=== PATIENT | female | born 1990 | race Two or more races ===

== ENCOUNTER 2020-07-28 23:04 | Inpatient (IN) | payer MEDICAID ==
[2020-07-28] MEDS ORDERED: Oxytocin/Lactated Ringers 10 UNIT/1,000 ML BAG IV SCH (23:45)
[2020-07-28] MEDS ORDERED: Ampicillin 2 GM in Sodium Chloride 0.9% 100 ML IV ONE (23:46)
[2020-07-28] MEDS ORDERED: Ondansetron 4 MG/2 ML SDV IVPUSH PRN (23:46)
[2020-07-28] MEDS ORDERED: Sodium Chloride 0.9% 10 ML Syringe FLUSH PRN (23:46)
[2020-07-28] MEDS ORDERED: Nalbuphine 10 MG/1 ML Vial IVPUSH PRN (23:46)
[2020-07-29] MEDS: Lactated Ringers 1,000 ML IV SCH ×3 (00:35→04:01)
[2020-07-29] MEDS ORDERED: fentaNYL 100 MCG/2 ML SDV IVPUSH ONE (02:43)
[2020-07-29] MEDS ORDERED: Bupivacaine/fentaNYL/NS 100 ML Bag EPIDUR SCH (02:45)
[2020-07-29] MEDS ORDERED: ePHEDrine 50 MG/ML SDV IVPUSH ONE (02:46)
[2020-07-29] MEDS ORDERED: diphenhydrAMINE 50 MG/ML SDV IVPUSH PRN (02:47)
--- NOTE | 2020-07-29 03:42 | PCM.PREANE ---
Preanesthetic Assessment - Procedure Proposed Procedure: Continuous labor epidural - Anesthesia/Transfusion/Family Hx Anesthesia History: Prior Anesthesia Without Reaction Transfusion History: No Prior Transfusion(s) - Review of Systems General: No Symptoms Pulmonary: No Symptoms Cardiovascular: No Symptoms Gastrointestinal: No Symptoms Neurological: No Symptoms Other: Reports: None - Physical Assessment Vital Signs: Last Vital Signs Temp 98.3 F 07/28/20 23:20 Pulse 97 07/28/20 23:20 Resp 15 07/28/20 23:20 BP 132/82 07/28/20 23:20 Pulse Ox 98 07/28/20 23:20 Height: 1.7 m Weight: 87.09 kg ASA Class: 2 Mental Status: Alert & Oriented x3 Dentition: Reports: Normal Dentition Thyro-Mental Finger Breadths: 3 Mouth Opening Finger Breadths: 3 ROM/Head Extension: Full Lungs: Clear to Auscultation, Normal Respiratory Effort Cardiovascular: Regular Rate, Regular Rhythm - Lab Values: Laboratory Last Values WBC 11.22 K/mm3 (3.98-10.04) H 07/28/20 23:58 RBC 4.43 M/mm3 (3.98-5.22) 07/28/20 23:58 Hgb 12.8 gm/dl (11.2-15.7) 07/28/20 23:58 Hct 38.0 % (34.1-44.9) 07/28/20 23:58 MCV 85.8 fl (79.4-94.8) 07/28/20 23:58 MCH 28.9 pg (25.6-32.2) 07/28/20 23:58 MCHC 33.7 g/dl (32.2-35.5) 07/28/20 23:58 RDW Std Deviation 47.3 fL (36.4-46.3) H 07/28/20 23:58 Plt Count 199 K/mm3 (182-369) 07/28/20 23:58 MPV 10.9 fl (9.4-12.3) 07/28/20 23:58 Neut % (Auto) 82.6 % (34.0-71.1) H 07/28/20 23:58 Lymph % (Auto) 10.9 % (19.3-51.7) L 07/28/20 23:58 [place] % (Auto) 6.1 % (4.7-12.5) 07/28/20 23:58 Eos % (Auto) 0.2 (0.7-5.8) L 07/28/20 23:58 Baso % (Auto) 0.2 % (0.1-1.2) 07/28/20 23:58 Neut # (Auto) 9.27 K/mm3 (1.56-6.13) H 07/28/20 23:58 Lymph # (Auto) 1.22 K/mm3 (1.18-3.74) 07/28/20 23:58 [place] # (Auto) 0.69 K/mm3 (0.24-0.36) H 07/28/20 23:58 Eos # (Auto) 0.02 K/mm3 (0.04-0.36) L 07/28/20 23:58 Baso # (Auto) 0.02 K/mm3 (0.01-0.08) 07/28/20 23:58 SARS-CoV-2 RNA (LILLIAN) Negative (NEGATIVE) 07/29/20 00:02 - Allergies Allergies/Adverse Reactions: Allergies Allergy/AdvReac Type Severity Reaction Status Date / Time No Known Allergies Allergy Verified 07/28/20 06:45 - Acknowledgements Anesthesia Type Planned: Epidural Pt an Appropriate Candidate for the Planned Anesthesia: Yes Alternatives and Risks of Anesthesia Discussed w Pt/Guardian: Yes Pt/Guardian Understands and Agrees with Anesthesia Plan: Yes PreAnesthesia Questionnaire - Past Health History Medical/Surgical History: Denies Medical/Surgical History HEENT History: Reports: None Cardiovascular History: Reports: None Respiratory History: Reports: None Gastrointestinal History: Reports: None Genitourinary History: Reports: None 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: Musculoskeletal History: Reports: None Neurological History: Reports: None Psychiatric History: Reports: None Endocrine/Metabolic History: Reports: None Hematologic History: Reports: None Immunologic History: Reports: None Oncologic (Cancer) History: Reports: None Dermatologic History: Reports: None - Infectious Disease History Infectious Disease History: Reports: None - Past Surgical History Head Surgeries/Procedures: Reports: None HEENT Surgical History: Reports: None Cardiovascular Surgical History: Reports: None Respiratory Surgical History: Reports: None GI Surgical History: Reports: None Female Surgical History: Reports: None Endocrine Surgical History: Reports: None Neurological Surgical History: Reports: None Musculoskeletal Surgical History: Reports: None Oncologic Surgical History: Reports: None Dermatological Surgical History: Reports: None - SUBSTANCE USE Tobacco Use Status *Q: Never Tobacco User Second Hand Smoke Exposure: No Recreational Drug Use History: No - HOME MEDS Home Medications: Home Meds Pnv No.95/Ferrous Fum/Folic AC [ Vitamin Tablet] 1 each PO DAILY 07/28/20 [History] - CURRENT (IN HOUSE) MEDS Current Meds: Current Medications Diphenhydramine HCl (Benadryl) 25 mg IVPUSH Q6H PRN PRN Reason: Itching Fentanyl/Bupivacaine HCl (Fentanyl/Bupivacaine/Ns 2 Mcg-0.125% 100 Ml) 100 ml EPIDUR ASDIRECTED ALEXIS Lactated Ringer's (Ringers, Lactated) 1,000 mls @ 100 mls/hr IV ASDIRECTED ALEXIS Last Admin: 07/29/20 03:00 Dose: 999 mls/hr Documented by: Ampicillin Sodium 1 gm/ Sodium (Chloride) 100 mls @ 200 mls/hr IV Q4H ALEXIS Oxytocin/Lactated Ringer's (Pitocin In Lr 10 Units/1,000 Ml) 10 unit in 1,000 mls @ 500 mls/hr IV .CONTINUOUS ALEXIS Nalbuphine HCl (Nubain) 10 mg IVPUSH Q2H PRN PRN Reason: Pain Last Admin: 07/29/20 01:00 Dose: 10 mg Documented by: Ondansetron HCl (Zofran) 4 mg IVPUSH Q4H PRN PRN Reason: Nausea/Vomiting Sodium Chloride (Saline Flush) 10 ml FLUSH ASDIRECTED PRN PRN Reason: Keep Vein Open Discontinued Medications Ephedrine Sulfate (Ephedrine Sulfate) 5 mg IVPUSH ONETIME ONE Stop: 07/29/20 02:47 Fentanyl (Sublimaze) 100 mcg IVPUSH ONETIME ONE Stop: 07/29/20 02:44 Last Admin: 07/29/20 03:08 Dose: 100 mcg Documented by: Ampicillin Sodium 2 gm/ Sodium (Chloride) 100 mls @ 200 mls/hr IV ONETIME ONE Stop: 07/29/20 00:15 Last Admin: 07/29/20 00:36 Dose: 200 mls/hr Documented by:
[2020-07-29] MEDS: Ampicillin 1 GM in Sodium Chloride 0.9% 100 ML IV SCH ×2 (04:10→22:32)
--- NOTE | 2020-07-29 08:41 | PCM.LDHP ---
L&D History of Present Illness - General Date of Service: 07/29/20 Admit Problem/Dx: Patient Status Order with Admit Dx/Problem 07/28/20 23:20 Patient Status [ADT] Routine 07/28/20 23:46 Patient Status [ADT] Routine Admission Diagnosis/Problem Admission Diagnosis/Problem - History of Present Illness Introduction:: 29 year old here in labor. 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: Musculoskeletal History: Reports: None Neurological History: Reports: None Psychiatric History: Reports: None Endocrine/Metabolic History: Reports: None Hematologic History: Reports: None Immunologic History: Reports: None Oncologic (Cancer) History: Reports: None Dermatologic History: Reports: None - Infectious Disease History Infectious Disease History: Reports: None - Past Surgical History Head Surgeries/Procedures: Reports: None HEENT Surgical History: Reports: None Cardiovascular Surgical History: Reports: None Respiratory Surgical History: Reports: None GI Surgical History: Reports: None Female Surgical History: Reports: None Endocrine Surgical History: Reports: None Neurological Surgical History: Reports: None Musculoskeletal Surgical History: Reports: None Oncologic Surgical History: Reports: None Dermatological Surgical History: Reports: None Social & Family History - Family History Family Medical History: No Pertinent Family History - Tobacco Use Tobacco Use Status *Q: Never Tobacco User Second Hand Smoke Exposure: No - Recreational Drug Use Recreational Drug Use: No H&P Review of Systems - Review of Systems: Review Of Systems: See Below General: Reports: No Symptoms HEENT: Reports: No Symptoms Pulmonary: Reports: No Symptoms Cardiovascular: Reports: No Symptoms Gastrointestinal: Reports: No Symptoms Genitourinary: Reports: No Symptoms Musculoskeletal: Reports: No Symptoms Skin: Reports: No Symptoms Psychiatric: Reports: No Symptoms Neurological: Reports: No Symptoms Hematologic/Lymphatic: Reports: No Symptoms Immunologic: Reports: No Symptoms L&D Exam - Exam Exam: See Below - Vital Signs Vital Signs: Last Vital Signs Temp 36.8 C 07/28/20 23:20 Pulse 97 07/28/20 23:20 Resp 15 07/28/20 23:20 BP 132/82 07/28/20 23:20 Pulse Ox 98 07/28/20 23:20 Weight: 87.09 kg - OB Specific Contraction Intensity: Moderate Movement: Active Heart Tones: Present Heart Rate (FHR) Variability: Moderate (6-25 bmp) Presentation: Vertex - Anna Score Anna Score Cervix Position: Midposition Anna Score Consistency: Soft Anna Score Effacement: >80% Anna Score Dilation: 3-4 cm Anna Score 's Station: -3 Anna Score Total: 8 - Exam General: Alert, Oriented HEENT: PERRLA, Conjunctiva Clear, EACs Clear, EOMI, Hearing Intact, Mucosa Moist & [employer], Nares Patent, Normal Nasal Septum, Posterior Pharynx Clear, TMs Clear Neck: Supple, Trachea Midline Lungs: Clear to Auscultation, Normal Respiratory Effort Cardiovascular: Regular Rate, Regular Rhythm GI/Abdominal Exam: Normal Bowel Sounds, Soft, Non-Tender, No Organomegaly, No Distention, No Abnormal Bruit, No Mass, Pelvis Stable Rectal Exam: Normal Exam, Normal Rectal Tone Extremities: Normal Inspection, Normal Range of Motion, Non-Tender, No Pedal Edema, Normal Capillary Refill Skin: Warm, Dry, Intact Neurological: Cranial Nerves Intact, Reflexes Equal Bilateral Psychiatric: Alert, Normal Affect, Normal Mood - Patient Data Lab Results Last 24 hrs: Laboratory Results - last 24 hr 07/28/20 07/29/20 Range/Units 23:58 00:02 WBC 11.22 H (3.98-10.04) K/mm3 RBC 4.43 (3.98-5.22) M/mm3 Hgb 12.8 (11.2-15.7) gm/dl Hct 38.0 (34.1-44.9) % MCV 85.8 (79.4-94.8) fl MCH 28.9 (25.6-32.2) pg MCHC 33.7 (32.2-35.5) g/dl RDW Std Deviation 47.3 H (36.4-46.3) fL Plt Count 199 (182-369) K/mm3 MPV 10.9 (9.4-12.3) fl Neut % (Auto) 82.6 H (34.0-71.1) % Lymph % (Auto) 10.9 L (19.3-51.7) % [place] % (Auto) 6.1 (4.7-12.5) % Eos % (Auto) 0.2 L (0.7-5.8) Baso % (Auto) 0.2 (0.1-1.2) % Neut # (Auto) 9.27 H (1.56-6.13) K/mm3 Lymph # (Auto) 1.22 (1.18-3.74) K/mm3 [place] # (Auto) 0.69 H (0.24-0.36) K/mm3 Eos # (Auto) 0.02 L (0.04-0.36) K/mm3 Baso # (Auto) 0.02 (0.01-0.08) K/mm3 SARS-CoV-2 RNA (LILLIAN) Negative (NEGATIVE) Result Diagrams: 07/28/20 23:58 Problem List Initiated/Reviewed/Updated: Yes Orders Last 24hrs: Active Orders 24 hr Category Date Time Status Patient Status [ADT] Routine ADT 07/28/20 23:46 Active Activity as Tolerated [RC] PFP Care 07/28/20 23:46 Active Communication Order [RC] ASDIRECTED Care 07/28/20 23:46 Active Heart Tones [RC] ASDIRECTED Care 07/28/20 23:46 Active Notify Provider [RC] PFP Care 07/28/20 23:46 Active Notify Provider [RC] PRN Care 07/28/20 23:46 Active Peripheral IV Care [RC] . DIRECTED Care 07/28/20 23:46 Active Vital Signs [RC] PER UNIT ROUTINE Care 07/28/20 23:20 Active Regular Diet [DIET] Diet 07/29/20 Breakfast Active RAPID PLASMA REAGIN,RPR [CHEM] Routine Lab 07/28/20 23:58 Received Ampicillin 1 gm Med 07/29/20 04:00 Active Sodium Chloride 0.9% [Normal Saline] 100 ml IV Q4H Bupivacaine/fentaNYL/NS [fentaNYL/Bupivacaine/NS 2 MCG- Med 07/29/20 02:45 Active 0.125% 100 ML] 100 ml EPIDUR ASDIRECTED Lactated Ringers [Ringers, Lactated] 1,000 ml Med 07/28/20 23:45 Active IV ASDIRECTED Nalbuphine [Nubain] Med 07/28/20 23:46 Active 10 mg IVPUSH Q2H PRN Ondansetron [Zofran] Med 07/28/20 23:46 Active 4 mg IVPUSH Q4H PRN Oxytocin/Lactated Ringers [Pitocin in LR 10 Units/1,000 Med 07/28/20 23:45 Active ML] 10 unit in 1,000 ml IV .CONTINUOUS Sodium Chloride 0.9% [Saline Flush] Med 07/28/20 23:46 Active 10 ml FLUSH ASDIRECTED PRN diphenhydrAMINE [Benadryl] Med 07/29/20 02:47 Active 25 mg IVPUSH Q6H PRN Electronic Heart Tones Ext w TOCO [WOMSER] Oth 07/28/20 23:46 Ordered Routine Electronic Heart Tones Internal [WOMSER] Per Unit Oth 07/28/20 23:46 Ordered Routine Peripheral IV Insertion Adult [OM.PC] Routine Oth 07/28/20 23:46 Ordered Resuscitation Status Routine Resus Stat 07/28/20 23:19 Ordered Medication Orders Diphenhydramine HCl (Benadryl) 25 mg IVPUSH Q6H PRN PRN Reason: Itching Fentanyl/Bupivacaine HCl (Fentanyl/Bupivacaine/Ns 2 Mcg-0.125% 100 Ml) 100 ml E PIDUR ASDIRECTED ALEXIS Lactated Ringer's (Ringers, Lactated) 1,000 mls @ 100 mls/hr IV ASDIRECTED ALEXIS Last Infusion: 07/29/20 04:30 Dose: 150 mls/hr Documented by: Admin: 07/29/20 04:01 Dose: 999 mls/hr Documented by: Infusion: 07/29/20 04:01 Dose: 999 mls/hr Documented by: Admin: 07/29/20 03:00 Dose: 999 mls/hr Documented by: Infusion: 07/29/20 02:57 Dose: 999 mls/hr Documented by: Infusion: 07/29/20 02:30 Dose: 999 mls/hr Documented by: Infusion: 07/29/20 01:00 Dose: 100 mls/hr Documented by: Admin: 07/29/20 00:35 Dose: 999 mls/hr Documented by: SESAR Ampicillin Sodium 1 gm/ Sodium (Chloride) 100 mls @ 200 mls/hr IV Q4H ALEXIS Last Admin: 07/29/20 04:10 Dose: 200 mls/hr Documented by: SESAR Oxytocin/Lactated Ringer's (Pitocin In Lr 10 Units/1,000 Ml) 10 unit in 1,000 mls @ 500 mls/hr IV .CONTINUOUS ALEXIS Nalbuphine HCl (Nubain) 10 mg IVPUSH Q2H PRN PRN Reason: Pain Last Admin: 07/29/20 01:00 Dose: 10 mg Documented by: SESAR Ondansetron HCl (Zofran) 4 mg IVPUSH Q4H PRN PRN Reason: Nausea/Vomiting Sodium Chloride (Saline Flush) 10 ml FLUSH ASDIRECTED PRN PRN Reason: Keep Vein Open Assessment/Plan Comment:: Term labor.
--- NOTE | 2020-07-29 08:49 | PCM.SN.2 ---
- Free Text/Narrative Note: Stage I - Patient presented in active labor. Progressed to complete with overall reassuring heart tones. Antibiotics given x2 doses. Meconium. Stage II - of viable male, weight 6#1 oz at 812, 8/9 APGARS. Head delivered in controlled manner over small first degree laceration. Body and shoulders follow atraumatically. Cord clamped and cut and cord blood sent. Stage III - of intact placenta, 3vc, small 2nd degree laceration repaired with 3-0 vicryl, EBL 100.
[2020-07-29] MEDS ORDERED: Lidocaine 1.5% with EPINEPHrine 1:200,000 5 ML Amp ONE (10:00)
[2020-07-29] MEDS ORDERED: Hydrocortisone Acetate 25 MG Supp RECTAL PRN (12:18)
[2020-07-29] MEDS ORDERED: Docusate Sodium 100 MG Cap PO PRN (12:18)
[2020-07-29] MEDS ORDERED: Benzocaine/Menthol 20%-0.5% Spray 56 GM Canister TOP PRN (12:18)
[2020-07-29] MEDS ORDERED: Witch Hazel Medicated Pads 40/Jar TOP PRN (12:18)
[2020-07-29] MEDS: Ibuprofen 600 MG Tab PO PRN ×2 (12:28→18:45)
[2020-07-30] MEDS ORDERED: Fluconazole 150 MG Tab PO ONE (12:15)
== END 2020-07-30 12:10 | disposition home or self-care (01) | DRG 807 ==
LOC: JD.OBCHECK 23:04 → JD.OB 23:04 → JD.OBCHECK 23:45 → JD.OB 23:46 → OBSVTOIN 07-29 08:12 → JD.OB 07-29 08:13
PROVIDERS: ADMIT Obstetrics & Gynecology; ATTEND Obstetrics & Gynecology
PROC: 4A1HXCZ Monitoring of Products of Conception, Cardiac Rate, External Approach (ICD-10-PCS; principal; 2020-07-29)
PROC: 10E0XZZ Delivery of Products of Conception, External Approach (ICD-10-PCS; principal; 2020-07-29)
PROC: 0HQ9XZZ Repair Perineum Skin, External Approach (ICD-10-PCS; 2020-07-29)
PROC: 3E0R3BZ Introduction of Anesthetic Agent into Spinal Canal, Percutaneous Approach (ICD-10-PCS; 2020-07-29)
DX: O77.0 Labor and delivery complicated by meconium in amniotic fluid (principal); Z37.0 Single live birth; O70.0 First degree perineal laceration during delivery; Z3A.38 38 weeks gestation of pregnancy; Z20.828 Contact with and (suspected) exposure to other viral communicable diseases
CPT/HCPCS: 01967; 36415; 51702; 59025; 59409; 85025; 85027; 86592; A9270-GY; J0290; J2300; J2590; J3010; J7050; J7120; U0002